=== PATIENT | male | born 1930 | race Caucasian/White ===

== ENCOUNTER 2017-12-26 16:02 | Outpatient (CLI) | payer MEDICARE, OTHER ==
[2017-12-26 17:18] LABS: #Eosinphils 0.1 thou/uL (0.0-0.7); #Lymphocytes 1.8 thou/uL (1.20-3.40); #Neutrophils 4.3 thou/uL (1.40-6.50); %Basophils 0.3 % (0.0-1.0); %Eosinophils 1.5 % (0.0-10.0); %Lymphocytes 25.1 % (21.0-51.0); %Monocytes 13.5 % (0.0-10.0); %Neutrophils 59.7 % (42.0-75.0); Hemoglobin 9.9 g/dL (14.0-18.0); Mean Corpuscular HGB CONC 33.2 g/dL (32.0-36.0); Mean Corpuscular Hemoglobin 32.2 pg (27.0-31.0); Mean Corpuscular Volume 96.9 fL (78.0-98.0); Mean Platelet Volume 6.7 fL (7.4-10.4); Platelet Count 262 thou/uL (130-400); RBC Distribution Width 13.1 % (11.5-14.5); Red Blood Cell (RBC) Count 3.08 mill/uL (4.70-6.10); White Blood Cell (WBC) Count 7.2 thou/uL (4.8-10.8)
[2017-12-26 17:41] LABS: Anion Gap 14 mmol/L (10-20); BUN (Urea Nitrogen) 26 mg/dL (8.4-25.7); Calc. Creatinine Clearance 0 mL/min (70-130); Calcium 8.4 mg/dL (7.8-10.44); Carbon Dioxide 28 mmol/L (23-31); Chloride 100 mmol/L (98-107); Estimated GFR-MDRD 56; Glucose 108 mg/dL (83-110); Potassium 4.7 mmol/L (3.5-5.1); Sodium 137 mmol/L (136-145)
== END 2017-12-26 16:03 | disposition home or self-care (01) ==
LOC: LABBT 16:02
PROVIDERS: ATTEND Specialist
DX: Z01.818 Encounter for other preprocedural examination (principal); L02.211 Cutaneous abscess of abdominal wall
CPT/HCPCS: 80048; 85025; 93005; 93010

== ENCOUNTER 2017-12-27 13:05 | Day surgery (SDC) | payer MEDICARE, OTHER ==
[2017-12-26 16:16] VITALS: BMI 30.4
[2017-12-27] MEDS ORDERED: CEFAZOLIN/Water 2 GM/20 ML SYRINGE ONE (13:41)
[2017-12-27] MEDS ORDERED: Fentanyl 100 MCG/2 ML VIAL ONE (18:21)
[2017-12-27] MEDS ORDERED: Lidocaine 2% 10 ML INJ ONE (18:24)
[2017-12-27] MEDS ORDERED: Bupivacaine HCl 0.5%/Epinephrine 1:200,000/PF 30 ml Vial ONE (18:24)
--- NOTE | 2017-12-27 20:28 | HP ---
HISTORY OF PRESENT ILLNESS: Neil Loredo is an 87-year-old male patient who in 05/2016 underwent a l aparoscopic cholecystectomy for cholecystitis. In the last several months, he has had recurrent infe ctions, a right subcostal midclavicular trocar site. This will drain on 1 or 2 occasions and then cl ears up and drains again. He has been treated with 4 or [address] Derrick Ingram contacted me and asked me to see him about his abdominal wall infection. CAT scan obtained at the [facility] revealed a metallic clip and the area of the infection. I doubt that this is contrib uting to the infection, but we will have available fluoroscopy in case that I cannot localize it. ALLERGIES: None. TOBACCO: None. ALCOHOL: None. MEDICATIONS: Glucosamine; atorvastatin; aspirin; furosemide; Tylenol; cholecalciferol; vitamin A, C and D; Ocuvite; nitroglycerin daily; Avodart daily; omeprazole daily; isosorbide day; Rythmol 150 p.o . q.i.d.; Imdur. PAST SURGICAL HISTORY: Lumbar surgery in 1968, left inguinal hernia repair without mesh in 1993, rig ht inguinal hernia repair with mesh 1984, left inguinal hernia repair with mesh, recurrent TURP. Spe rmatocele resection by Dr. Mccain, laparoscopic cholecystectomy. Some mention of hiatal hernia repai r in past records, but patient does not aware of such a procedure. PAST MEDICAL HISTORY: Arthritis, atrial fibrillation. REVIEW OF SYSTEM: Ten-point noncontributory. FAMILY HISTORY: Noncontributory. PHYSICAL EXAMINATION: GENERAL: Patient is in no distress. LUNGS: Clear to auscultation. CARDIAC: Regular rate and rhythm without murmur or gallop. ABDOMEN: Soft, nontender. Right subcostal midclavicular trocar site infection with induration, cell ulitis and tenderness. EXTREMITIES: Unremarkable, ankle edema. NEUROLOGIC: Intact. Cranial nerves intact. HEENT: Unremarkable. SKIN: Normal color. ASSESSMENT AND PLAN: Recurrent infection in right upper quadrant, midclavicular trocar site with a f oreign body via titanium clip from a laparoscopic cholecystectomy reported at the [facility] C AT scan recently. We will plan exploration under anesthesia on outpatient. Wound will be left open more like healing by secondary intention. He has Bactrim at home.
--- NOTE | 2017-12-28 00:56 | OP ---
DATE OF PROCEDURE: 12/27/2017 PREOPERATIVE DIAGNOSIS: Abdominal wall abscess with foreign body via titanium clip from laparoscopic cholecystectomy two years ago, located right subcostal midclavicular 5 mm trocar site. POSTOPERATIVE DIAGNOSIS: Abdominal wall abscess with foreign body via titanium clip from laparoscopi c cholecystectomy two years ago, located right subcostal midclavicular 5 mm trocar site. PROCEDURE: Incision and drainage of abscess with underlying tracking extending down to the fascia, i dentification of a titanium clip removed and fluoroscopy used to assure no other foreign body present . SURGEON: Esteban Gomez M.D. ANESTHESIA: TIVA, local of 0.5% Marcaine with epinephrine, 30 mL, mixed with 2% Xylocaine, 10 mL tot al volume mixture used. PROCEDURE IN DETAIL: The patient taken to the operating room under intravenous sedation. Abdominal wall was prepared with ChloraPrep, draped in routine fashion. Local anesthetic infiltrated into the skin and subcutaneous tissue about the operative site. Incision was made, carried down the subcutane ous tissue, there was undermining medially and laterally, incision was extended. Some chronic inflam matory granulation tissue debrided. Clip was identified and removed and discarded. This clip was co nsistent with prior cholecystectomy clip titanium, unlikely to have caused an abscess, but in this lo cation where he had a persistent abscess. Wound irrigated. Fluoroscopy used to ensure no other fore ign body was present. There was an intra-abdominal clip as expected, but no other foreign bodies not ed. Wound irrigated. Subcutaneous tissue was irrigated. Saline wet to dry dressing applied.
== END 2017-12-27 20:55 | disposition home or self-care (01) ==
LOC: SDC 13:05
PROVIDERS: ATTEND Specialist
PROC: 0J980ZZ Drainage of Abdomen Subcutaneous Tissue and Fascia, Open Approach (ICD-10-PCS; principal; 2017-12-27)
PROC: 0WCG0ZZ Extirpation of Matter from Peritoneal Cavity, Open Approach (ICD-10-PCS; 2017-12-27)
DX: L02.211 Cutaneous abscess of abdominal wall (principal); S30.851A Superficial foreign body of abdominal wall, initial encounter; Z79.82 Long term (current) use of aspirin; Z79.899 Other long term (current) drug therapy; Z98.890 Other specified postprocedural states
CPT/HCPCS: J0670; J3010